=== PATIENT | male | born 1985 | race Caucasian/White ===

== ENCOUNTER → 2017-07-11 | Outpatient (CLI) | payer OTHER ==
[~2017-07-11] MED LIST: ACET325T14 PO; APIX5TAB PO; INSU100C SQ-INSULIN; INSU100V8 SQ; OMNIPAQUE 350 MG/ML, 150 ML BOTTLE ONE
== END | disposition home or self-care (01) ==
LOC: CFH 12:05
PROVIDERS: ATTEND Internal Medicine Cardiovascular Disease
DX: I48.91 Unspecified atrial fibrillation (principal)
CPT/HCPCS: 71020; 75572; 82565; Q9967

== ENCOUNTER 2017-07-12 06:26 | Observation (INO) | payer OTHER ==
[2017-07-11 14:44] LABS: HEMOGLOBIN 15.1 g/dL (13.7-18.0); WHITE BLOOD COUNT 7.2 x10^3/uL (3.4-10)
[2017-07-11 14:58] VITALS: BP 93/77
[2017-07-11 15:16] LABS: ASPARTATE AMINO TRANSFERASE 9 U/L (15-37); BLOOD UREA NITROGEN 15 mg/dL (7-18)
[~2017-07-12] VITALS: Ht 193 cm; Wt 111.3 kg
[~2017-07-12 06:26] MED LIST changes: -ACET325T14 PO; -OMNIPAQUE 350 MG/ML, 150 ML BOTTLE ONE
[2017-07-12] MEDS ORDERED: SODIUM CHLORIDE 0.9% 1,000 ML IV SCH (06:33)
[2017-07-12] MEDS ORDERED: SODIUM CHLORIDE 0.9% 1,000 ML IV ONE (07:00)
[2017-07-12] MEDS ORDERED: HEPARIN 1,000 UNITS/ML, 10ML ONE (07:40)
[2017-07-12] MEDS ORDERED: ISOPROTERENOL 0.2MG/ML, 5ML ONE (07:40)
[2017-07-12] MEDS ORDERED: PROTAMINE SULFATE 10 MG/ML, 5ML ONE (07:40)
[2017-07-12] MEDS ORDERED: LIDOCAINE 2%, 20ML ONE (07:40)
[2017-07-12] MEDS ORDERED: FENTANYL PF 250 MCG/5ML ONE (07:54)
[2017-07-12] MEDS ORDERED: MIDAZOLAM 1 MG/ML, 5ML ONE (07:54)
[2017-07-12] MEDS ORDERED: PROPOFOL 10 MG/ML, 20ML ONE (07:58)
[2017-07-12] MEDS ORDERED: DEXAMETHASONE 4 MG/ML, 1ML ONE (07:58)
[2017-07-12] MEDS ORDERED: PHENYLEPHRINE 10 MG/ML ONE (07:58)
[2017-07-12] MEDS ORDERED: ROCURONIUM 10 MG/ML,10ML ONE (07:58)
[2017-07-12] MEDS ORDERED: SUCCINYLCHOLINE 20 MG/ML, 10ML ONE (07:58)
[2017-07-12] MEDS ORDERED: ONDANSETRON 2MG/ML, 2ML IVPush PRN (11:30)
[2017-07-12] MEDS ORDERED: MIDAZOLAM 1 MG/ML, 2ML IV PRN (11:30)
[2017-07-12] MEDS ORDERED: ALBUTEROL SULFATE 2.5 MG/3 ML NPPB PRN (11:30)
[2017-07-12] MEDS ORDERED: ZOLPIDEM 5MG TABLET PO PRN (11:30)
[2017-07-12] MEDS ORDERED: LABETALOL 5MG/ML, 20ML IV PRN (11:30)
[2017-07-12] MEDS: INSULIN DETEMIR 100 UNITS/ML, PEN SQ-INSULIN SCH ×2 (11:30→20:11)
[2017-07-12] MEDS ORDERED: PROMETHAZINE 25 MG/ML, 1ML IV PRN (11:30)
[2017-07-12] MEDS ORDERED: HYDROmorphone 1 MG/ML, 1ML IV PRN (11:30)
[2017-07-12] MEDS ORDERED: ACETAMINOPHEN 325 MG TABLET PO PRN ×2 (11:30)
[2017-07-12] MEDS ORDERED: hydrALAzine 20 MG/ML, 1ML IV PRN (11:30)
[2017-07-12] MEDS ORDERED: MEPERIDINE/PF 25MG/0.5ML IVPush PRN (11:30)
[2017-07-12] MEDS ORDERED: OXYcodone 5 MG/5 ML ORAL.SOL UDC PO PRN (11:30)
[2017-07-12] MEDS ORDERED: FENTANYL PF 100 MCG/2ML IV PRN (11:30)
[2017-07-12] MEDS ORDERED: ACETAMINOPHEN 650 MG/20.3 ML UDC ONE (12:12)
[2017-07-12] MEDS ORDERED: OXYcodone 5 MG/5 ML ORAL.SOL UDC ONE (12:12)
[2017-07-12] MEDS ORDERED: FENTANYL PF 100 MCG/2ML ONE (12:12)
[2017-07-12 13:41] VITALS: BP 120/76
[2017-07-12] MEDS: APIXABAN 5 MG TABLET PO SCH ×2 (14:40→20:07)
[2017-07-12] MEDS: INSULIN ASPART 100 UNITS/ML, PEN SQ-INSULIN SCH ×2 (16:00→20:26)
[2017-07-12] MEDS ORDERED: NICOTINE 14MG/24 HR PATCH.TD24 TD PRN (19:00)
[2017-07-12 21:52] VITALS: BP 114/70
[2017-07-13 03:36] VITALS: BP 92/46
[2017-07-13] MEDS: APIXABAN 5 MG TABLET PO SCH (08:12)
[2017-07-13] MEDS: INSULIN ASPART 100 UNITS/ML, PEN SQ-INSULIN SCH (08:12)
[2017-07-13] MEDS ORDERED: ACET325T14 PO (08:14)
[2017-07-13 08:18] VITALS: BP 120/70
== END 2017-07-13 11:13 | disposition home or self-care (01) ==
LOC: CACL 06:26 → CCU 11:05 → 5SO 13:23 → DCLOUNGE 07-13 11:05
PROVIDERS: ADMIT Internal Medicine Cardiovascular Disease; ATTEND Internal Medicine Cardiovascular Disease
DX: I48.91 Unspecified atrial fibrillation (principal); I48.92 Unspecified atrial flutter; Z79.01 Long term (current) use of anticoagulants
CPT/HCPCS: 36415; 80053; 82962; 85025; 85347; 93308; 93312; 93321; 93325; 93613; 93655; 93656; 93662; 96372; C1730; C1731; C1732; C1759; C1766; C1893; C1894; G0378; J0330; J1100; J1644; J1815; J2250; J2370; J2704; J2720; J3010; J3490